=== PATIENT | female | born 1975 ===

== ENCOUNTER → 2025-01-11 | Day surgery (SDC) | payer OTHER ==
[~2025-01-11] MED LIST: BUPROPION HCL100 MG PO; DICYCLOMINE HCL20 MG PO; FENTANYL CITRATE/PF 100MCG/2 ML INJ ONE; FOLIC ACID0.4 MG PO; HYOSCYAMINE SULFATE 0.5 MG/ML INJ ONE; LIDOCAINE HCL 2% LOCAL INJ 5 ML SDV VIAL INJ ONE; METOCLOPRAMIDE HCL 10 MG/2ML VIAL ONE; OMEPRAZOLE40 MG PO; PROPOFOL IV EMULSION 10 MG/ML 20 ML VIAL ONE; PROPOFOL IV EMULSION 50 ML IV ONE; WOMEN'S 50 PLU1 EACH
[2025-01-11] MEDS: LACTATED RINGER'S 1,000 ML ONE (09:30)
[2025-01-11 11:53] VITALS: TEMP 97.9
[2025-01-11 12:50] VITALS: BP 128/86; PULSE 79; RESP 18; O2SAT 95
== END | disposition home or self-care (01) ==
LOC: OR 09:07 → EDSEX 10:30
PROVIDERS: ATTEND Internal Medicine Gastroenterology
DX: K20.90 Esophagitis, unspecified without bleeding (principal); D12.2 Benign neoplasm of ascending colon; K29.70 Gastritis, unspecified, without bleeding; K21.9 Gastro-esophageal reflux disease without esophagitis; Z98.84 Bariatric surgery status; K44.9 Diaphragmatic hernia without obstruction or gangrene; K57.30 Diverticulosis of large intestine without perforation or abscess without bleeding; K64.8 Other hemorrhoids; K64.4 Residual hemorrhoidal skin tags; K62.5 Hemorrhage of anus and rectum; R06.83 Snoring; E66.01 Morbid (severe) obesity due to excess calories; Z01.810 Encounter for preprocedural cardiovascular examination; Z79.899 Other long term (current) drug therapy; Z68.42 Body mass index [BMI] 45.0-49.9, adult; Z71.3 Dietary counseling and surveillance
CPT/HCPCS: 43239; 43450; 45385; 93005; J1980; J2003; J2470; J2704 ×2; J2765; J3010; J7121; 45378